=== PATIENT | female | born 1965 | race Caucasian/White ===

== ENCOUNTER 2021-02-23 00:31 | Observation (INO) | payer OTHER ==
[2021-02-23] MEDS ORDERED: Sodium Chloride 0.9% 1000 ML 1,000 ML IV SCH ×2 (01:00→05:45)
--- NOTE | 2021-02-23 01:08 | ERPHSYRPT ---
- History of Present Illness Time Seen by Provider: 02/23/21 01:03 Historian: patient Exam Limitations: no limitations Patient Subjective Stated Complaint: Patient c/o chest pain radiating down left arm, worse with coughing. Cough is nonproductive and began appx 3 weeks ago. Also c/o chills, headache, loss of taste and smell, diarrhea. Patient admits to having suicidal thoughts and hearing voices over the past week. Triage Nursing Assessment: Patient alert and oriented. Voice sounds hoarse. Patient has nonproductive cough. Lung sounds diminished and clear throughout. Skin color normal for race. Patient denies having suicidal thoughts at this time. Physician History: Patient is a 55-year-old white female who reports that she has been sick on and off for a month but the last 2 days she has had cough severe headache pain in the left side of the chest which is pleuritic and radiates through to the back and down the left arm she is also been short of breath her son has been diagnosed with Covid she has had chills sweats and she had a Covid test on Tuesday and apparently the testing organization has been trying to reach her. She also has a nonproductive cough she has no sense of smell although her taste seems okay. She also has had one episode of diarrhea. Timing/Duration: day(s) (2) Activities at Onset: none Quality: stabbing Location: substernal Chest Pain Radiation: arm, back Severity of Pain-Max: severe Severity of Pain-Current: severe Modifying Factors: Improves With: breathing, coughing, movement Associated Symptoms: cough, hurts to breathe, diaphoresis, chills Prior Chest Pain/Cardiac Workup: no prior chest pain Nitro Today/Relief: no nitro taken today Aspirin Treatment Today: no aspirin today Allergies/Adverse Reactions: Penicillins Allergy (Severe, Verified 02/23/21 01:03) Anaphylactic Reaction Sulfa (Sulfonamide Antibiotics) Allergy (Severe, Verified 02/23/21 01:03) Anaphylactic Reaction morphine Adverse Reaction (Mild, Verified 02/23/21 01:03) Nausea and Vomiting Home Medications: No Reportable Medications [No Reported Medications] 02/23/21 [History] Travel Risk - International Travel Have you traveled outside of the country in past 3 weeks: No - Coronavirus Screening Are you exhibiting any of the following symptoms?: Yes Symptoms: Cough: New Onset, Shortness of Breath, Vomiting/Diarrhea, Loss of Taste or Smell, Headaches/Body Aches/Fatigue Close contact with a COVID-19 positive Pt in past 14-21 Days: Yes - Vaccine Status Have you recieved a Covid-19 vaccination: No - Review of Systems Constitutional: Fever, Chills, Night Sweats Eyes: No Symptoms Ears, Nose, & Throat: No Symptoms Respiratory: Cough, Dyspnea Cardiac: Chest Pain Abdominal/Gastrointestinal: Diarrhea Genitourinary Symptoms: No Symptoms Musculoskeletal: Arthralgias, Myalgias Skin: No Rash Neurological: Headache Psychological: No Symptoms Endocrine: No Symptoms Hematologic/Lymphatic: No Symptoms Immunological/Allergic: No Symptoms All Other Systems: Reviewed and Negative - Past Medical History Pertinent Past Medical History: Yes Neurological History: No Pertinent History ENT History: No Pertinent History Cardiac History: Hypertension Respiratory History: No Pertinent History Endocrine Medical History: No Pertinent History Musculoskeletal History: No Pertinent History GI Medical History: Diverticulitis History: No Pertinent History Psycho-Social History: Anxiety, Depression, Other Female Reproductive Disorders: No Pertinent History Other Medical History: IV drug use in the past, patient admits to hearing voices in the past and being suicidal over the past week - Past Surgical History Past Surgical History: Yes Cardiac: No Pertinent History Respiratory: No Pertinent History Gastrointestinal: Appendectomy, Cholecystectomy Genitourinary: No Pertinent History Musculoskeletal: No Pertinent History Female Surgical History: Other - Social History Smoking Status: Current every day smoker How long have you smoked: 30 Drug Use: marijuana Patient Lives Alone: No - Female History Hx Last Menstrual Period: 10 years ago - Nursing Vital Signs Nursing Vital Signs: Initial Vital Signs Temperature 98.7 F 02/23/21 00:40 Pulse Rate 109 H 02/23/21 00:40 Respiratory Rate 20 02/23/21 00:40 Blood Pressure 163/127 02/23/21 00:40 O2 Sat by Pulse Oximetry 95 02/23/21 00:40 Pain Scale Pain Intensity 5 - Physical Exam General Appearance: mild distress, alert Eye Exam: PERRL/EOMI, eyes nml inspection Ears, Nose, Throat Exam: normal ENT inspection, dry mucous membranes Neck Exam: normal inspection, non-tender, supple, full range of motion Respiratory Exam: diminished breath sounds, crackles/rales, rhonchi, No respiratory distress Cardiovascular Exam: regular rate/rhythm, normal heart sounds Gastrointestinal/Abdomen Exam: soft, No tenderness, No mass Back Exam: normal inspection, No CVA tenderness, No vertebral tenderness Extremity Exam: normal inspection, normal range of motion Neurologic Exam: alert, oriented x 3, cooperative, normal mood/affect, sensation nml, No motor deficits Skin Exam: normal color, warm, dry SpO2 Interpretation: borderline oxygenation, O2 applied SpO2: 95 O2 Delivery: Nasal Cannula Ordered Tests: Active Orders 24 hr Category Date Time Status EKG-ER Only STAT Care 02/23/21 00:59 Active IV Insertion STAT Care 02/23/21 00:59 Active CHEST 1 VIEW (PORTABLE) Stat Exams 02/23/21 01:00 Taken CHEST WITH CONTRAST [CT] Stat Exams 02/23/21 02:49 Ordered AMYLASE Stat Lab 02/23/21 01:14 Completed BLOOD CULTURE Stat Lab 02/23/21 01:35 Received CBC W DIFF Stat Lab 02/23/21 01:14 Completed CMP Stat Lab 02/23/21 01:14 Completed D-DIMER QUANTITATIVE Stat Lab 02/23/21 01:35 Completed LIPASE Stat Lab 02/23/21 01:14 Completed Lactic Acid Stat Lab 02/23/21 03:05 Completed MAGNESIUM Stat Lab 02/23/21 01:14 Completed NT PRO BNP Stat Lab 02/23/21 01:14 Completed PROTIME WITH INR Stat Lab 02/23/21 01:35 Completed TROPONIN Q3H Lab 02/23/21 01:14 Completed TROPONIN Q3H Lab 02/23/21 04:00 Ordered TROPONIN Q3H Lab 02/23/21 07:00 Ordered TROPONIN Q3H Lab 02/23/21 10:00 Ordered TROPONIN Q3H Lab 02/23/21 13:00 Ordered UA W/RFX UR CULTURE Stat Lab 02/23/21 00:59 Ordered Medication Summary Generic Name Dose Route Start Last Admin Trade Name Freq PRN Reason Stop Dose Admin Sodium Chloride 1,000 mls @ 100 mls/hr 02/23/21 01:00 02/23/21 01:12 Sodium Chloride 0.9% 1000 Ml IV 03/25/21 00:59 100 mls/hr .Q10H JEZ Administration Discontinued Medications Generic Name Dose Route Start Last Admin Trade Name Freq PRN Reason Stop Dose Admin Hydrocodone Bitart/Acetaminophen 1 tab 02/23/21 02:10 02/23/21 02:12 Hydrocodone/Apap 5/325 Mg Tablet PO 02/23/21 02:11 1 tab STAT ONE Administration Hydrocodone Bitart/Acetaminophen Confirm 02/23/21 02:12 Hydrocodone/Apap 5/325 Mg Tablet Administered 02/23/21 02:13 Dose 1 tab .ROUTE .STK-MED ONE Lab/Rad Data: Laboratory Result Diagrams 02/23/21 01:14 02/23/21 01:14 Laboratory Results 02/23/21 02/23/21 02/23/21 Range/Units 03:05 02:21 01:35 WBC (4.0-10.5) K/mm3 RBC (4.1-5.4) M/mm3 Hgb (12.0-16.0) gm/dl Hct (35-47) % MCV (78-100) fl MCH (26-32) pg MCHC (32-36) g/dl RDW (11.5-14.0) % Plt Count (150-450) K/mm3 MPV (7.5-11.0) fl Gran % (36.0-66.0) % Eos # (Auto) (0-0.5) Absolute Lymphs (auto) (1.0-4.6) Absolute Monos (auto) (0.0-1.3) Lymphocytes % (24.0-44.0) % Monocytes % (0.0-12.0) % Eosinophils % (0.00-5.0) % Basophils % (0.0-0.4) % Absolute Granulocytes (1.4-6.9) Basophils # (0-0.4) PT 12.0 (9.4-12.5) SECONDS INR 1.02 (0.8-3.0) D-Dimer 383 (215-500) ng/mL Sodium (137-145) mmol/L Potassium (3.5-5.1) mmol/L Chloride (98-107) mmol/L Carbon Dioxide (22-30) mmol/L Anion Gap (5-15) MEQ/L BUN (7-17) mg/dL Creatinine (0.52-1.04) mg/dL Estimated GFR ML/MIN Glucose (74-106) mg/dL Lactic Acid 0.8 (0.4-2.0) Calcium (8.4-10.2) mg/dL Magnesium (1.6-2.3) mg/dL Total Bilirubin (0.2-1.3) mg/dL AST (14-36) U/L ALT (0-35) U/L Alkaline Phosphatase (38-126) U/L Troponin I (0.000-0.034) ng/mL NT-Pro-B Natriuret Pep (0-900) pg/mL Serum Total Protein (6.3-8.2) g/dL Albumin (3.5-5.0) g/dL Amylase (30-110) U/L Lipase (23-300) U/L Influenza Type A Ag NEGATIVE (NEGATIVE) Influenza Type B Ag NEGATIVE (NEGATIVE) RSV (PCR) NEGATIVE (Negative) SARS-CoV-2 (PCR) POSITIVE A (NEGATIVE) 02/23/21 02/23/21 02/23/21 Range/Units 01:14 01:14 01:14 WBC 5.4 (4.0-10.5) K/mm3 RBC 4.89 (4.1-5.4) M/mm3 Hgb 14.5 (12.0-16.0) gm/dl Hct 47.1 H (35-47) % MCV 96.3 (78-100) fl MCH 29.7 (26-32) pg MCHC 30.8 L (32-36) g/dl RDW 14.4 H (11.5-14.0) % Plt Count 204 (150-450) K/mm3 MPV 9.6 (7.5-11.0) fl Gran % 47.2 (36.0-66.0) % Eos # (Auto) 0.02 (0-0.5) Absolute Lymphs (auto) 2.23 (1.0-4.6) Absolute Monos (auto) 0.61 (0.0-1.3) Lymphocytes % 41.0 (24.0-44.0) % Monocytes % 11.2 (0.0-12.0) % Eosinophils % 0.4 (0.00-5.0) % Basophils % 0.2 (0.0-0.4) % Absolute Granulocytes 2.57 (1.4-6.9) Basophils # 0.01 (0-0.4) PT (9.4-12.5) SECONDS INR (0.8-3.0) D-Dimer (215-500) ng/mL Sodium 141 (137-145) mmol/L Potassium 3.9 (3.5-5.1) mmol/L Chloride 103 (98-107) mmol/L Carbon Dioxide 29 (22-30) mmol/L Anion Gap 12.9 (5-15) MEQ/L BUN 16 (7-17) mg/dL Creatinine 0.76 (0.52-1.04) mg/dL Estimated GFR > 60.0 ML/MIN Glucose 93 (74-106) mg/dL Lactic Acid (0.4-2.0) Calcium 8.8 (8.4-10.2) mg/dL Magnesium 1.9 (1.6-2.3) mg/dL Total Bilirubin 0.50 (0.2-1.3) mg/dL AST 27 (14-36) U/L ALT 15 (0-35) U/L Alkaline Phosphatase 80 (38-126) U/L Troponin I < 0.012 (0.000-0.034) ng/mL NT-Pro-B Natriuret Pep 83.0 (0-900) pg/mL Serum Total Protein 7.2 (6.3-8.2) g/dL Albumin 4.2 (3.5-5.0) g/dL Amylase 53 (30-110) U/L Lipase 95 (23-300) U/L Influenza Type A Ag (NEGATIVE) Influenza Type B Ag (NEGATIVE) RSV (PCR) (Negative) SARS-CoV-2 (PCR) (NEGATIVE) - Progress Progress: unchanged Air Movement: fair Blood Culture(s) Obtained: Yes Antibiotics given: No Discussed with : Other (Dr Villa) Will see patient in: hospital (observation) - Departure Departure Disposition: Observation Clinical Impression: COVID-19 Condition: Fair Critical Care Time: No Referrals: FRANCIS HART [COURTESY STAFF] - Follow up/PCP as directed
[2021-02-23] MEDS ORDERED: Sodium Chloride 0.9% 1000 ML 1,000 ML ONE (01:12)
[2021-02-23 01:37] LABS: Absolute Neutrophil Ct (ANC) 2.57 (1.4-6.9); BASOPHIL % 0.2 % (0.0-0.4); Basophil (Absolute #) 0.01 (0-0.4); Eosinophil % 0.4 % (0.00-5.0); Eosinophil (Absolute #) 0.02 (0-0.5); Hematocrit 47.1 % (35-47); Hemoglobin 14.5 gm/dl (12.0-16.0); Lymphocyte (Absolute #) 2.23 (1.0-4.6); Mean Cell Volume 96.3 fl (78-100); Mean Corpuscular Hemoglobin 29.7 pg (26-32); Mean Corpuscular Hgb Concent. 30.8 g/dl (32-36); Mean Platelet Volume 9.6 fl (7.5-11.0); Monocyte (Absolute #) 0.61 (0.0-1.3); Monocytes % 11.2 % (0.0-12.0); Neutrophil % 47.2 % (36.0-66.0); Platelet Count 204 K/mm3 (150-450); Red Blood Count 4.89 M/mm3 (4.1-5.4); Red Cell Distribution Width 14.4 % (11.5-14.0); White Blood Count 5.4 K/mm3 (4.0-10.5)
[2021-02-23 01:44] LABS: INR 1.02 (0.8-3.0)
[2021-02-23 02:04] LABS: ALBUMIN 4.2 g/dL (3.5-5.0); ALKALINE PHOSPHATASE 80 U/L (38-126); AMYLASE 53 U/L (30-110); ANION GAP 12.9 MEQ/L (5-15); BLOOD UREA NITROGEN 16 mg/dL (7-17); CHLORIDE 103 mmol/L (98-107); Calcium 8.8 mg/dL (8.4-10.2); Carbon Dioxide 29 mmol/L (22-30); Creatinine 1 0.76 mg/dL (0.52-1.04); EST GLOMERULAR FILTRATION RATE > 60.0 ML/MIN; Glucose 93 mg/dL (74-106); LIPASE 95 U/L (23-300); MAGNESIUM 1.9 mg/dL (1.6-2.3); Potassium 3.9 mmol/L (3.5-5.1); SGOT/AST 27 U/L (14-36); SGPT/ALT 15 U/L (0-35); SODIUM 141 mmol/L (137-145); Total Protein 7.2 g/dL (6.3-8.2)
[2021-02-23] MEDS ORDERED: NORCO 5/325 MG PO ONE (02:10)
[2021-02-23] MEDS ORDERED: NORCO 5/325 MG ONE (02:12)
[2021-02-23 03:02] LABS: INFLUENZA A NEGATIVE (NEGATIVE); INFLUENZA B NEGATIVE (NEGATIVE); RESPIRATORY SYNCTIAL VIRUS NEGATIVE (Negative)
[2021-02-23 03:06] LABS: SARS-CoV-2 Xpert Express POSITIVE (NEGATIVE)
[2021-02-23 04:51] LABS: Amourphous Crystal FEW /HPF (NEGATIVE); Appearance TURBID (CLEAR); Bacteria MANY /HPF (NEGATIVE); Bilirubin NEGATIVE (NEGATIVE); Blood MODERATE Ery/ul (0-5); Epithelial Cells MANY /HPF (FEW); Glucose NEGATIVE (NEGATIVE); Ketones NEGATIVE (NEGATIVE); Leukocyte Esterase TRACE (NEGATIVE); Mucus MANY /HPF (NEGATIVE); Nitrite NEGATIVE (NEGATIVE); Protein,Urine Dip 30 (Negative); RBC 0-2 /HPF (0-2); Specific Gravity 1.029 (1.005-1.025); Urobilinogen NEGATIVE mg/dL (0-1)
[2021-02-23] MEDS ORDERED: Ativan 2 MG/1 ML VIAL IV PRN (05:42)
[2021-02-23] MEDS ORDERED: TYLENOL EXTRA STRENGTH 500 MG PO PRN (05:43)
[2021-02-23] MEDS ORDERED: REMDESIVIR IV ONE (05:48)
[2021-02-23] MEDS ORDERED: Sodium Chloride 0.9% 250 ML 250 ML IV ONE (05:48)
[2021-02-23] MEDS ORDERED: REMDESIVIR 200 MG in Sodium Chloride 0.9% 250 ML 250 ML IV ONE (06:00)
[2021-02-23] MEDS ORDERED: ENOXAPARIN SODIUM SQ SCH (06:00)
[2021-02-23] MEDS: HYDROCODONE-CHLORPHEN ER SUSP PO PRN ×2 (06:18→17:28)
[2021-02-23] MEDS: NORCO 5/325 MG PO PRN ×4 (07:54→21:37)
[2021-02-23] MEDS: Ativan 1 MG PO PRN ×3 (07:54→21:37)
[2021-02-23] MEDS ORDERED: Zofran 4 MG/2 ML VIAL IV PRN (07:58)
[2021-02-23] MEDS: DECADRON 10MG INJ. IV SCH (08:05)
[2021-02-23] MEDS: OLUMIANT PO SCH (08:05)
[2021-02-23] MEDS: Nicoderm CQ 21 MG TOP SCH (08:06)
--- NOTE | 2021-02-23 09:19 | XRAY ---
Indication: Over 19 exposure. Comparison: None Portable chest demonstrate minimal bibasilar infiltrates versus atelectasis. Incidental scattered calcified granulomas. Heart not enlarged. Bony thorax intact.
[2021-02-23] MEDS ORDERED: Decadron 4 MG INJ IV SCH (10:00)
[2021-02-23] MEDS: Lexapro 10 MG PO SCH (10:04)
--- NOTE | 2021-02-23 14:56 | HP ---
CHIEF COMPLAINT: Shortness of breath, vomiting, left flank and chest pain. HISTORY OF PRESENT ILLNESS: He states this has been going on for two days and the pain was quite severe. She does not have pain like this normally. She does smoke. No history of frequent cough. Emergency room respiratory rate was elevated at 20 but O2 saturation was 95%. Her oxygen did drop into the low 90's to upper 80's and she was placed on 2 liters. Pain scale rates left lower chest and flank pain as 5. She has lost her taste and smell, has more headaches and just feels terrible all over. She has made plan to see her physician on Tuesday. However, it got bad enough she decided to come into the emergency room. She states she took her Klonopin and some muscle relaxers to given to her by a friend without relief. She also has some chest pain radiating down the left arm. ALLERGIES: PENICILLIN. SULFA. MORPHINE. PAST MEDICAL HISTORY: Hypertension. Depression. PAST SURGICAL HISTORY: Appendectomy. Cholecystectomy. REVIEW OF SYSTEMS: HEENT: Problems with taste. Hears and sees okay. CHEST: Some shortness of breath, lower left chest pain radiating down to flank. ABDOMEN: No tenderness or organomegaly. She has had diarrhea which is a little bit different for her. EXTREMITIES: No specific pain. The patient had some lipomas left leg which are tender at times but has been there for years. No weakness. BACK: No pain. PSYCH: The patient has been rather severely depressed. Her stepson is dying of colon cancer. Her other son has lost his kids to foster care and she has just been terribly upset, unable to sleep and tearful with these situations in the last month. She has no history of chronic psych problems. LAB DATA AND TESTS: Blood work - White count 5.8. Electrolytes normal. Liver enzymes normal. BNP normal. PHYSICAL EXAMINATION: The patient is a heavy woman. She is normally aged at 55. HEENT: Pupils equal and reactive to light. NECK: Slightly tender on the left side. CHEST: Clear, tender on the left lower chest but mostly the left flank muscles which are tender and worse with movement. EXTREMITIES: Three small lumps upper thigh moveable, soft, feel like lipomas. Lower extremities are normal. IMPRESSION: 1) COVID pneumonia. 2) COVID gastroenteritis and loss of taste. 3) Rather severe depression due to situational problems severe at home. 4) Smoking history. PLAN: She will be put on all of the COVID drugs. Due to her risk factors and worsening of her breathing problem overnight, she will be started on Celexa for her depression. She is on Vicodin normally PRN for her back and neck pain, continue that. PROGNOSIS: Fair.
[2021-02-24] MEDS: HYDROCODONE-CHLORPHEN ER SUSP PO PRN ×2 (05:32→16:51)
[2021-02-24 08:25] LABS: Absolute Neutrophil Ct (ANC) 8.31 (1.4-6.9); BASOPHIL % 0.1 % (0.0-0.4); Basophil (Absolute #) 0.01 (0-0.4); Eosinophil % 1.3 % (0.00-5.0); Eosinophil (Absolute #) 0.16 (0-0.5); Hematocrit 44.8 % (35-47); Hemoglobin 13.5 gm/dl (12.0-16.0); Lymphocyte (Absolute #) 2.87 (1.0-4.6); Lymphocytes % 23.9 % (24.0-44.0); Mean Cell Volume 96.6 fl (78-100); Mean Corpuscular Hemoglobin 29.1 pg (26-32); Mean Corpuscular Hgb Concent. 30.1 g/dl (32-36); Mean Platelet Volume 10.7 fl (7.5-11.0); Monocyte (Absolute #) 0.68 (0.0-1.3); Monocytes % 5.7 % (0.0-12.0); Platelet Count 130 K/mm3 (150-450); Red Blood Count 4.64 M/mm3 (4.1-5.4)
[2021-02-24] MEDS: CEPACOL SORE THROAT LOZENGE PO PRN ×4 (09:01→16:50)
[2021-02-24 10:17] LABS: ALBUMIN 3.7 g/dL (3.5-5.0); ALKALINE PHOSPHATASE 71 U/L (38-126); ANION GAP 10.6 MEQ/L (5-15); BLOOD UREA NITROGEN 16 mg/dL (7-17); CHLORIDE 106 mmol/L (98-107); Calcium 8.7 mg/dL (8.4-10.2); Carbon Dioxide 26 mmol/L (22-30); Creatinine 1 0.57 mg/dL (0.52-1.04); EST GLOMERULAR FILTRATION RATE > 60.0 ML/MIN; Glucose 90 mg/dL (74-106); NT PRO BNP 96.1 pg/mL (0-900); Potassium 4.1 mmol/L (3.5-5.1); SGOT/AST 27 U/L (14-36); SGPT/ALT 16 U/L (0-35); SODIUM 139 mmol/L (137-145); Total Protein 6.6 g/dL (6.3-8.2)
[2021-02-24] MEDS: ENOXAPARIN SODIUM SQ SCH (10:38)
[2021-02-24] MEDS: Nicoderm CQ 21 MG TOP SCH (10:38)
[2021-02-24] MEDS: OLUMIANT PO SCH (10:38)
[2021-02-24] MEDS: DECADRON 10MG INJ. IV SCH (10:50)
[2021-02-24] MEDS: REMDESIVIR 100 MG in Sodium Chloride 0.9% 100 ML BAG 100 ML IV SCH (11:14)
[2021-02-24] MEDS: Lexapro 10 MG PO SCH (11:15)
[2021-02-24] MEDS: NORCO 5/325 MG PO PRN (20:59)
[2021-02-25 05:58] LABS: Absolute Neutrophil Ct (ANC) 1.93 (1.4-6.9); BASOPHIL % 0.2 % (0.0-0.4); Basophil (Absolute #) 0.01 (0-0.4); Eosinophil % 0.7 % (0.00-5.0); Eosinophil (Absolute #) 0.04 (0-0.5); Hemoglobin 14.2 gm/dl (12.0-16.0); Lymphocytes % 59.8 % (24.0-44.0); Mean Cell Volume 96.1 fl (78-100); Mean Corpuscular Hgb Concent. 30.2 g/dl (32-36); Mean Platelet Volume 9.6 fl (7.5-11.0); Monocyte (Absolute #) 0.44 (0.0-1.3); Monocytes % 7.3 % (0.0-12.0); Platelet Count 209 K/mm3 (150-450); Red Blood Count 4.89 M/mm3 (4.1-5.4); Red Cell Distribution Width 13.9 % (11.5-14.0)
[2021-02-25] MEDS: HYDROCODONE-CHLORPHEN ER SUSP PO PRN (06:16)
[2021-02-25] MEDS: CEPACOL SORE THROAT LOZENGE PO PRN (06:17)
[2021-02-25 06:24] LABS: ALBUMIN 3.6 g/dL (3.5-5.0); ALKALINE PHOSPHATASE 70 U/L (38-126); ANION GAP 8.3 MEQ/L (5-15); BLOOD UREA NITROGEN 12 mg/dL (7-17); CHLORIDE 103 mmol/L (98-107); Calcium 8.3 mg/dL (8.4-10.2); Carbon Dioxide 31 mmol/L (22-30); Creatinine 1 0.66 mg/dL (0.52-1.04); EST GLOMERULAR FILTRATION RATE > 60.0 ML/MIN; Glucose 83 mg/dL (74-106); NT PRO BNP 341 pg/mL (0-900); Potassium 3.7 mmol/L (3.5-5.1); SGOT/AST 29 U/L (14-36); SGPT/ALT 22 U/L (0-35); SODIUM 138 mmol/L (137-145); Total Protein 6.6 g/dL (6.3-8.2)
[2021-02-25] MEDS: DECADRON 10MG INJ. IV SCH (11:14)
[2021-02-25] MEDS: REMDESIVIR 100 MG in Sodium Chloride 0.9% 100 ML BAG 100 ML IV SCH (11:14)
[2021-02-25] MEDS: OLUMIANT PO SCH (11:24)
[2021-02-25] MEDS: ENOXAPARIN SODIUM SQ SCH (11:24)
[2021-02-25] MEDS: Lexapro 10 MG PO SCH (11:25)
[2021-02-25] MEDS: Nicoderm CQ 21 MG TOP SCH (11:25)
[2021-02-25] MEDS: NORCO 5/325 MG PO PRN (11:53)
[2021-02-25 12:31] VITALS: PULSE 74; O2SAT 93
[2021-02-25 12:32] VITALS: BP 147/74
[2021-02-27 16:51] LABS: Slide Review 1 YES
== END 2021-02-25 15:25 | disposition home or self-care (01) ==
LOC: ED 00:31 → MED SURG 05:18
PROVIDERS: ADMIT Family Medicine; ATTEND Family Medicine
DX: U07.1 COVID-19 (principal); J12.82 Pneumonia due to coronavirus disease 2019; K52.9 Noninfective gastroenteritis and colitis, unspecified; R07.9 Chest pain, unspecified; F32.A Depression, unspecified; R45.851 Suicidal ideations; I10 Essential (primary) hypertension; F17.200 Nicotine dependence, unspecified, uncomplicated
CPT/HCPCS: 0241U; 36000; 36415; 71045; 80053; 81001; 82150; 83036; 83605; 83690; 83735; 83880; 84484; 85025; 85379; 85610; 87040; 87086; 93005; 93268; 94762; 99285; G0378; J1100; J1650; A9270-GY